=== PATIENT | male | born 1970 | race African-American/Black ===

== ENCOUNTER 2020-11-07 13:43 | Emergency (ER) | payer OTHER, SELFPAY ==
[2020-11-07 13:48] VITALS: BP 126/71; PULSE 95; RESP 18; TEMP 36.6; O2SAT 98
--- NOTE | 2020-11-07 14:39 | ED.GENADULT ---
HPI - General Adult General Chief complaint: Back Pain/Injury Stated complaint: Back Pain Time Seen by Provider: 11/07/20 14:37 History of Present Illness HPI narrative: Patient is a 49-year-old male who comes to the ED today complaining of several complaints. Patient reports that for at least the last 5 years he has had low back pain, left knee pain and tingling in both feet and pain in both hips. All the symptoms are worse with exertion and prolonged standing. Says he has been seen by primary care doctor for this in the past but has not seen her for this recently (Dr. Grande) patient is not quite clear why. Says he has had about 10 MRIs. He has had injections into his back which have helped and also injections in his left knee which have helped. Has had physical therapy for his back in the past. Does not do any type of exercises currently. Notes that he also has pain in both shoulders that is worse with activity. Denies any acute changes to any of these conditions. He is allergic to ibuprofen and aspirin. Review of Systems Constitutional: Constitutional: Reports as per HPI, Denies fever(s), Denies night sweats and Denies weakness Cardiovascular: Cardiovascular: Denies chest pain, Denies edema, Denies leg edema, Denies dyspnea and Denies orthopnea Respiratory: Respiratory: Denies cough and Denies dyspnea Gastrointestinal: Gastrointestinal: Denies abdominal pain, Denies constipation, Denies diarrhea, Denies nausea and Denies vomiting Musculoskeletal: Musculoskeletal: Denies abnormal gait, Reports back pain, Denies numbness and Denies tingling Neurologic: Denies Abnormal speech present, Denies abnormal gait, Denies numbness, Denies tingling and Denies weakness Psychiatric: Psychiatric: Denies homicidal ideation and Denies suicidal ideation Exam Const: General: cooperative, healthy appearing, comfortable, no acute distress, well developed, alert, awake and Physically active Orientation/consciousness: patient oriented x3 HENMT: Head: normal to inspection, normocephalic and atraumatic Ears: external ears normal General nose exam: Normal external nose present Eyes: Pupils: Equal, round and reactive pupils present EOM: EOMs intact bilaterally Neck: Neck: normal visual inspection Chest: Chest palpation & inspection: normal inspection of the chest and no tenderness Resp: Effort & Inspection: normal respiratory effort and able to speak in complete sentences Auscultation: clear to auscultation bilaterally Cardio: Rate: regular rate Rhythm: regular rhythm GI: Inspection: normal to inspection GI Palp: No abdominal tenderness : General: Yes no CVA tenderness Back/Spine/Pelvis: Back: no CVA tenderness Other: Tender to palpate over left sided low back. Full range of motion of trunk and all extremities. Ambulates with normal gait. Normal strength throughout. Neurovascular intact throughout. Skin: General skin exam: normal color and no rashes or lesions noted Lesions: no lesions Neuro: General: patient oriented x3, no focal motor deficits and CN's II-XI intact bilaterally Cranial nerves: Yes Equal, round and reactive pupils present Speech: No Abnormal speech present Extrem: General: normal to inspection and full ROM Psych: Appearance: grossly normal and well kempt Mental Status: mental status grossly normal Speech and movement: Normal speech and movement present Affect: normal affect Thought process: Normal thought process present Course Course Emergency Course: Educated patient that the emergency room has limited treatment options for his chronic pain and he will need to follow-up with his primary care doctor. Discussed the importance of core strength and flexibility. Unfortunately because of his allergies I cannot offer any type of anti-inflammatory medicines. Offered Tylenol and he politely refused. Vital Signs Vital signs: Vital Signs Temperature 36.6 C 11/07/20 13:48 Pulse Rate 95 11/07/20 13:48 R
== END 2020-11-07 16:20 | disposition home or self-care (01) ==
PROVIDERS: Emergency Provider Emergency Medicine; PCP Family Medicine
DX: M54.5 Low back pain (principal)
CPT/HCPCS: 99281